=== PATIENT | female | born 1985 | race Caucasian/White ===

== ENCOUNTER 2016-08-18 09:57 | Outpatient (CLI) | payer OTHER ==
[~2016-08-18] VITALS: Ht 175.3 cm; Wt 86.3 kg
[2016-08-18] MEDS ORDERED: AMOXICILLIN 50500 MG PO (11:41)
[2016-08-18] MEDS ORDERED: ANTIVERT 25MG25 MG PO (11:42)
[2016-08-18] MEDS ORDERED: VITAMIN D 1001000 IU PO (11:43)
[2016-08-18] MEDS ORDERED: FLOMAX 0.40.4 MG/CAP PO (11:43)
[2016-08-18] MEDS ORDERED: DITROPAN 5MG TAB5 MG PO (11:45)
[2016-08-18] MEDS ORDERED: PROTONIX 40MG T40 MG PO (11:46)
[2016-08-18] MEDS ORDERED: PROAIR HFA0.09 MG/AC IH (11:46)
[2016-08-18] MEDS ORDERED: BACTROBAN NASA0.9 GM NS (11:47)
[2016-08-18] MEDS ORDERED: FOLIC ACID 11 MG/TA1 PO (11:47)
[2016-08-18] MEDS ORDERED: PHENERGAN 25 TA25 MG PO (11:48)
[2016-08-18] MEDS ORDERED: FLONASE NASAL S16 GM NS (11:48)
[2016-08-18] MEDS ORDERED: EPIPEN 2-PAK1 MG/ML IM (11:49)
[2016-08-18 12:15] VITALS: BP 122/90; PULSE 106; TEMP 97.9
[2016-08-18 15:13] VITALS: BP 118/80; PULSE 118; TEMP 98
[2016-08-18] MEDS ORDERED: CEPHALEXIN500 M1 PO (15:21)
[2016-08-18] MEDS ORDERED: CARDIZEM CD 18180 MG PO (15:28)
== END 2016-08-18 15:41 | disposition home or self-care (01) ==
LOC: COL.CAR 09:57
DX: R55 Syncope and collapse (principal)
CPT/HCPCS: C1764

== ENCOUNTER 2016-09-10 10:40 | Inpatient (IN) | payer OTHER ==
[2016-09-10] VITALS (496 sets, daily range): BP systolic 119–140; BP diastolic 83–100; PULSE 98–105; TEMP 96.9–98.5; O2SAT 67–100
[~2016-09-10] VITALS: Ht 177.8 cm; Wt 89.8 kg
[~2016-09-10 10:40] MED LIST: AMOXICILLIN 50500 MG PO; ANTIVERT 25MG25 MG PO; BACTROBAN NASA0.9 GM NS; CARDIZEM CD 18180 MG PO; CEPHALEXIN500 M1 PO; DITROPAN 5MG TAB5 MG PO; EPIPEN 2-PAK1 MG/ML IM; FLOMAX 0.40.4 MG/CAP PO; FLONASE NASAL S16 GM NS; FOLIC ACID 11 MG/TA1 PO; PHENERGAN 25 TA25 MG PO; PROAIR HFA0.09 MG/AC IH; PROTONIX 40MG T40 MG PO; VITAMIN D 1001000 IU PO
[2016-09-10] MEDS ORDERED: SINGULAIR 110 MG/TAB PO (11:10)
[2016-09-10] MEDS ORDERED: ZANTAC 150150 MG PO (11:11)
[2016-09-10] MEDS ORDERED: VITAMINC250CH PO (11:12)
[2016-09-10 13:45] LABS: ARTERIAL BLD GAS O2 SATURATION 98.5 % (92-100); ARTERIAL BLD GAS TCO2 CT 19.2; ARTERIAL BLOOD GAS BASE EXCESS -6.2 (-2-2); ARTERIAL BLOOD GAS HCO3 18.2 meq/L (22-26); ARTERIAL BLOOD GAS PHT 7.37 C (7.35-7.45); ARTERIAL BLOOD GAS pH 7.37 (7.35-7.45); OXYHEMOGLOBIN 97.5 %
[2016-09-10 13:46] LABS: ABG VENTILATOR TIDAL VOLUME 450 mL; ARTERIAL BLOOD GAS PO2 169.7 mmHg (80-100); ARTERIAL BLOOD GAS PO2T 169.7 (80-100); ATS? YES
[2016-09-10 15:44] LABS: HEMOGLOBIN 12.7 g/dl (12.5-16.0); MEAN CELL VOLUME 93 fl (80.0-100.0); MEAN CORPUSCULAR HEMOGLOBIN 32 pg (27.0-31.0); MEAN CORPUSCULAR HGB CONC 34 g/dl (33.0-37.0); MEAN PLATELET VOLUME 9.3 fl (7.4-10.4); PLATELET COUNT 195 K/mm3 (130-400); RED BLOOD COUNT 3.99 M/mm3 (4.10-5.30); REDCELL DISTRIBUTION WIDTH-CV 11.8 % (11.5-14.5); WHITE BLOOD COUNT 7.3 K/mm3 (4.8-10.8)
[2016-09-10 15:46] LABS: HEMATOCRIT 36.9 % (37.0-47.0)
[2016-09-10 15:58] LABS: ADJUSTED CALCIUM 8.7 mg/dL (8.4-10.2); ALBUMIN 3.9 gm/dL (3.5-5.0); BILIRUBIN,TOTAL 0.6 mg/dL (0.0-1.0); CALCIUM 8.6 mg/dL (8.4-10.2); CREATININE, serum 0.65 mg/dL (0.52-1.25); POTASSIUM 3.9 mmol/L (3.4-5.0); TOTAL PROTEIN 6.6 gm/dL (6.4-8.2)
[2016-09-10] MEDS ORDERED: DOXYCYCLINE HY100 MG PO (17:30)
[2016-09-11] VITALS (544 sets, daily range): BP systolic 110–127; BP diastolic 74–95; PULSE 76–88; TEMP 97–99; O2SAT 92–100
[2016-09-11 05:22] LABS: BASO % 0.3 % (0.0-2.0); EOS # 0.1 (0.0-0.7); EOS % 1.3 % (0-4.0); GRAN # 5.4 (1.4-6.5); GRAN % 63.1 % (42.2-75.2); LYMPH # 2.4 (1.2-3.4); LYMPH % 27.8 % (20.0-51.0); MEAN CELL VOLUME 92 fl (80.0-100.0); MEAN CORPUSCULAR HGB CONC 35 g/dl (33.0-37.0); MEAN PLATELET VOLUME 9.4 fl (7.4-10.4); MONO # 0.6 (0.1-0.6); MONO % 7.2 % (1.7-9.3); PLATELET COUNT 182 K/mm3 (130-400); RED BLOOD COUNT 3.69 M/mm3 (4.10-5.30); REDCELL DISTRIBUTION WIDTH-CV 11.8 % (11.5-14.5); WHITE BLOOD COUNT 8.6 K/mm3 (4.8-10.8)
[2016-09-11 05:29] LABS: HEMATOCRIT 33.9 % (37.0-47.0); HEMOGLOBIN 11.7 g/dl (12.5-16.0); MEAN CORPUSCULAR HEMOGLOBIN 32 pg (27.0-31.0)
[2016-09-11 05:33] LABS: ADJUSTED CALCIUM 9.1 mg/dL (8.4-10.2); ALBUMIN 3.4 gm/dL (3.5-5.0); BILIRUBIN,TOTAL 0.8 mg/dL (0.0-1.0); CALCIUM 8.6 mg/dL (8.4-10.2); CREATININE, serum 0.67 mg/dL (0.52-1.25); POTASSIUM 3.3 mmol/L (3.4-5.0)
== END 2016-09-11 09:20 | disposition home or self-care (01) | DRG 208 ==
LOC: SDCO 10:40 → ICU 13:51 → SDCO 13:57 → ICU 13:57 → SDCO 15:21 → ICU 18:00
PROVIDERS: Internal Medicine Cardiovascular Disease; Internal Medicine Gastroenterology
PROC: 0DB98ZX Excision of Duodenum, Via Natural or Artificial Opening Endoscopic, Diagnostic (ICD-10-PCS; 2016-09-10)
PROC: 0BH17EZ Insertion of Endotracheal Airway into Trachea, Via Natural or Artificial Opening (ICD-10-PCS; 2016-09-10)
PROC: 0DBK8ZX Excision of Ascending Colon, Via Natural or Artificial Opening Endoscopic, Diagnostic (ICD-10-PCS; principal; 2016-09-10 12:00)
PROC: 5A1935Z Respiratory Ventilation, Less than 24 Consecutive Hours (ICD-10-PCS; 2016-09-10 12:00)
DX: J95.821 Acute postprocedural respiratory failure (principal); D12.2 Benign neoplasm of ascending colon; K64.0 First degree hemorrhoids; I10 Essential (primary) hypertension; J45.909 Unspecified asthma, uncomplicated; R00.0 Tachycardia, unspecified
CPT/HCPCS: 99233-AI; A4315; C1751; J0330; J1644; J1720; J2060; J2704; J7030

== ENCOUNTER → 2016-09-17 | Outpatient (CLI) | payer OTHER ==
[~2016-09-17] MED LIST changes: +DOXYCYCLINE HY100 MG PO; +SINGULAIR 110 MG/TAB PO; +VITAMINC250CH PO; +ZANTAC 150150 MG PO
== END ==
LOC: COL.RAD 06:54
DX: R11.0 Nausea (principal)
CPT/HCPCS: A9541

== ENCOUNTER → 2016-09-18 | Outpatient (CLI) | payer OTHER | LOC: COL.RAD 09:59 | DX: K59.09 Other constipation (principal) ==

== ENCOUNTER → 2016-09-23 | Outpatient (CLI) | payer OTHER | LOC: COL.RAD 09:58 | DX: K59.00 Constipation, unspecified (principal) ==

== ENCOUNTER → 2017-12-13 | Outpatient (CLI) | payer OTHER | LOC: COL.CARD 12:34 | DX: R55 Syncope and collapse (principal) ==

== ENCOUNTER 2018-11-10 13:12 | Emergency (ER) | payer OTHER ==
[~2018-11-10] VITALS: Ht 175.3 cm; Wt 68.2 kg
[2018-11-10 13:33] VITALS: TEMP 98
[2018-11-10 15:24] LABS: BASO # 0.1 (0.0-0.2); BASO % 0.9 % (0.0-2.0); EOS # 0.1 (0.0-0.7); EOS % 1.2 % (0-4.0); GRAN # 4.5 (1.4-6.5); GRAN % 65.5 % (42.2-75.2); HEMATOCRIT 41.9 % (37.0-47.0); LYMPH # 1.7 (1.2-3.4); LYMPH % 24.5 % (20.0-51.0); MEAN CELL VOLUME 96 fl (80.0-100.0); MEAN CORPUSCULAR HEMOGLOBIN 32 pg (27.0-31.0); MEAN CORPUSCULAR HGB CONC 33 g/dl (33.0-37.0); MEAN PLATELET VOLUME 9.7 fl (7.4-10.4); MONO # 0.5 (0.1-0.6); MONO % 7.8 % (1.7-9.3); PLATELET COUNT 202 K/mm3 (130-400); RED BLOOD COUNT 4.35 M/mm3 (4.10-5.30); REDCELL DISTRIBUTION WIDTH-CV 12.3 % (11.5-14.5)
[2018-11-10 15:38] LABS: CALCIUM 9.8 mg/dL (8.4-10.2); CREATININE, serum 0.7 (0.52-1.25); POTASSIUM 4.4 mmol/L (3.4-5.0)
[2018-11-10 17:35] VITALS: BP 114/69; PULSE 97
== END 2018-11-10 17:37 | disposition home or self-care (01) ==
LOC: COL.ER 13:12
PROVIDERS: Emergency Medicine
DX: H57.12 Ocular pain, left eye (principal); H02.402 Unspecified ptosis of left eyelid; Z79.51 Long term (current) use of inhaled steroids
CPT/HCPCS: A9585; J1200; J2930; J7030; Q9967

== ENCOUNTER → 2018-12-19 | Outpatient (CLI) | payer OTHER | LOC: COL.VAS 12-09 10:00 | DX: R06.02 Shortness of breath (principal) ==